=== PATIENT | female | born 2005 | race Two or more races ===

== ENCOUNTER 2024-02-12 23:38 | Inpatient (IN) | payer MEDICAID, SELFPAY ==
[2024-02-12 23:40] VITALS: BMI 35.9
[2024-02-12 23:45] VITALS: TEMP 36.9
[2024-02-12 23:54] VITALS: RESP 19; TEMP 36.9
[2024-02-13] VITALS (226 sets, daily range): BP systolic 0–155; BP diastolic 0–94; PULSE 77–157; RESP 17–18; TEMP 36.6–36.8; O2SAT 75–100
--- NOTE | 2024-02-13 01:08 | XR_ITS ---
Examination: Complete OB ultrasound greater than 14 weeks Date and time of exam: February 13, 2024 0130 hrs. Indications: Labor evaluation, pelvic pressure beginning 3 days ago Findings: Viable intrauterine single fetus with single amniotic sac presentation cephalic spine posterior Cardiac motion 160 BPM Placenta anterior grade 2 Umbilical cord insertion 3 vessel seen Amniotic fluid index 5.1 cm Cervix 3.8 cm Ovaries obscured by bowel gas. Composite estimated gestational age based on BPD, head circumference, abdominal circumference, femur length is 40 weeks 2 days Estimated weight 4193.5 g. Survey of intracranial anatomy, spinal anatomy, abdominal anatomy, four-chamber heart performed with no abnormalities identified. Impression: Viable intrauterine gestation cephalic presentation.
--- NOTE | 2024-02-13 02:19 | PD.LDHP ---
Documentation for date of: 02/13/24 OB Labor/Induct. HPI History of Present Illness Date of last menstrual period: 05/06/23 Gestational age based on last menstrual period: 40 History of present illness: 18 y/o @ 40w3d, per LMP 2nd trimester US, here for reports of abdominal pain. On arrival baby had a non recurrent variable deceleration. This is my first encounter with reji knox . Has not been scheduled for IOL yet. Patient reports no bleeding leaking History of Present Dating criteria: LMP confirmed by 2nd trimester US Adequate Care: Yes Labs Labs: Negative: Hepatitis B, HIV, Chlamydia, Gonorrhea and Group Beta Strep Narrative: GTT abnormal Meds Home Medications and Allergies Home Medications ?Medication ?Instructions ?Recorded ?Confirmed ?Type folic acid 800 mcg tablet 800 mcg PO DAILY 02/13/24 02/13/24 History vits no.124-ferrous fum 1 tab PO DAILY 02/13/24 02/13/24 History 27 mg iron-folic acid 800 mcg tablet ( Vitamin) Allergies Allergy/AdvReac Type Severity Reaction Status Date / Time No Known Allergies Allergy Verified 02/13/24 02:01 OB Exam Physical Exam Vital signs: Temp Pulse Resp BP 98.5 F 77 19 120/67 02/12/24 23:54 02/13/24 00:46 02/12/24 23:54 02/13/24 00:46 Constitutional Constitutional: no acute distress Routine HEENT Exam Head: Present normocephalic and atraumatic Eye: Present EOMI and PERRL ENT: Present mucous membranes moist Routine Neck Exam Neck: Present supple and trachea midline Routine Cardiovascular Exam Cardiovascular: Present RRR Routine Abdominal Exam Abdominal: Present soft and normoactive bowel sounds Detailed Labor and Delivery Exam Dilation (cm): 1/thick Comments: occasional variable decel Routine Extremities Exam Extremities: Present full ROM Routine Skin Exam Skin: Present intact, dry and warm Routine Neurological Exam Neurological: Present alert, oriented X3 and CN II-XII intact Routine Psychiatric Exam Psychiatric: Present normal affect and normal thought process OB Results Impressions Impression: 18 y/o [id number], Per 2nd trimester US , ADMITTED FOR iol FOR CATEGORY 2 FHT Normal GTT anatomy wnl GBS negative OB Assessment & Plan Additional Plan Additional Plan Comment: US for EFW and Presentration cervidil to be placed
[2024-02-13 02:49] LABS: Amphetamine/Metham Scrn,Ur OB Negative (Negative); Benzoylecgonine Screen, Ur OB Negative (Negative); Opiate Screen,Urine OB Negative (Negative); THC Screen,Urine OB Negative (Negative)
[2024-02-13 02:55] LABS: Basophils % (Auto) 0 % (0-2.5); Eosinophils # (Auto) 0.1 Thou/mm3 (0.0-0.5); Eosinophils % (Auto) 1 % (0-10); Hematocrit 33.5 % (36.0-46.0); Hemoglobin 10.9 g/dL (12.0-16.0); Immature Granulocytes % (Auto) 0 % (0-0); Immature Granulocytes Auto 0.04 Thou/mm3 (0.00-0.00); Lymphocytes # (Auto) 1.9 Thou/mm3 (1.0-5.0); Lymphocytes % (Auto) 19 % (10-50); Mean Corpuscular HGB Conc 32.5 g/dl (31.0-37.0); Mean Corpuscular Hemoglobin 23.5 pg (25.0-35.0); Mean Corpuscular Volume 72 fL (80-100); Monocytes # (Auto) 0.5 Thou/mm3 (0.0-0.8); Monocytes % (Auto) 5 % (0-12); Neutrophils # (Auto) 7.6 Thou/mm3 (1.8-7.7); Neutrophils % (Auto) 75 % (37-80); Nucleated Red Blood Cell % 0 /100 WBC (0); Platelet Count 195 Thou/mm3 (140-440); RDW Standard Deviation 54.4 fL (36.4-46.3); Red Blood Count 4.63 Miln/mm3 (4.00-5.20); White Blood Count 10.2 Thou/mm3 (4.5-11.0)
--- NOTE | 2024-02-13 03:07 | PRELIM_ITS ---
Obstetric ultrasound. February 13, 2024 at 0120 hours Clinical history: Presentation, EFW. Findings:S uboptimal visualization due to position. There is a gravid uterus with a live fetus in cephalic presentation of mean gestational age 40 weeks and 2 days. cardiac activity is present at a hea rt rate of 160 beats per minute. The placenta is anterior in location, maturity grade II. There is no evidence of placenta previa or retroplacental hemorrhage. Amniotic fluid index is 5.1 cm with Maximu m Vertical Pocket of 1.8 cm. Estimated weight is 4193 grams+/- 621 grams. The cervical length measures 3.8 cm. The ovaries are not visualized, obscured by bowel gas.Impression:Gravid uterus wit h a single live fetus in cephalic presentation of mean gestational age 40 weeks 2 days.Oligohydramnio s with amniotic fluid index of 5.1 cm and Maximum Vertical Pocket of 1.8 cmEstimated weight is 4193 grams+/- 621 grams. Discussion Details: Results verbally communicated to Evie Gomez RN at 06:04 AM ET 02/13/2024. A call back number was provided to facilitate a direct physician to physician communication. Report Electronically Signed By: Luis Edwards 02/13/2024 3:06:06 AM [EST]
[2024-02-13 03:24] LABS: Syphilis Nonreactive (Nonreactive)
[2024-02-13] MEDS: DINOPROSTONE 10 MG VAG.SUPP VAGINAL (03:25)
[2024-02-13] MEDS: fentaNYL CIT INJ 50 mCg/ML AMP 2ML 100 MCG IV ×2 (13:52→21:48)
[2024-02-13] MEDS: MISOPROSTOL 50 mCg TABLET PO (17:42)
[2024-02-13] MEDS: RINGERS LACTATED 1000 ML 1,000 ML 999 ML IV (20:40)
[2024-02-13] MEDS: TERBUTALINE SULF INJ 1 MG/ML VIAL 0.25 MG SC (20:46)
[2024-02-13] MEDS: MINERAL OIL 30 ML UDC TOP (21:40)
[2024-02-13] MEDS: OXYTOCIN in NS 20 units 20 UNIT/1,000 ML BAG 125 UNIT IV (21:44)
[2024-02-13] MEDS: LIDOCAINE HCL 1% 20 ML VIAL INFL (21:45)
[2024-02-13] MEDS: METHYLERGONOVINE INJ 0.2 MG/ML VIAL IM (21:48)
[2024-02-13] MEDS: TRANEXAMIC ACID 1,000 MG IVPB 1,000 MG/100 ML BAG 200 MG IV (21:48)
--- NOTE | 2024-02-13 22:04 | OBDSUM_ITS ---
Vacuum Assisted Delivery General Patient Counseled by physician:: Yes Informed consent to patient:: Yes Estimated weight:: 4100 g Cervical dilation:: fully dilated station:: +2 position:: [place] Molding:: No Caput:: No Vacuum Application Vacuum type:: Mityvac Vacuum application:: flexing median Cup Placement Flexion point identified:: Yes Cup approp. for head position:: Yes Maternal tissue excluded:: Yes Vacuum Procedure Number of pulls (contractions):: 2 Number of pop-offs:: 2 Recommended range maintained:: Yes Vacuum reduced between pulls:: Yes Immediate [place] Evaluation Immediate assessment:: no apparent injury Data (Craig) Data : 1 Para: 0 Term: 0 : 0 : 0 Delivery Data (Craig) Labor Data Induction: Yes ROM Date: 02/13/24 ROM Time: 19:00 Rupture Type: SROM Amniotic Fluid: Clear Delivery Data Labor Onset Stage 1 Date: 02/13/24 Labor Onset Stage 1 Time: 19:00 Labor Onset Stage 2 Date: 02/13/24 Labor Onset Stage 2 Time: 21:10 Delivery Date: 02/13/24 Delivery Time: 21:43 Placenta Delivery Date: 02/13/24 Placenta Delivery Time: 21:45 Delivered by: Teddy Natarajan Delivery nurse: aSrah Beth Jin Other staff at delivery: Nursery Nurse Other staff at delivery: Shruthi Avendaño Delivery Method Delivery: Vaginal Delivery Type: Spontaneous Presentation: Vertex Position: OA Anesthesia Type Primary Anesthesia: Local Delivery Room Medications Other Intrapartum Medications: Yes Placenta Placenta Delivery: Manual Placenta Cultures Obtained: Yes Placenta Sent for Examination: Yes Episiotomy Episiotomy: Right Mediolateral Umbilical Cord Umbilical Vessels: 3 Nuchal Cord: None Body Cord: None Data (Craig) Data Infant Gender: Male Weight Grams: 3910 1 Minute Total: 7 5 Minute Total: 9
[2024-02-13] MEDS: BENZO/LANO/ALOE (Dermoplast) 60 GM CAN 1 SPRAY TOP (22:33)
[2024-02-13] MEDS: ceFAZolin/D5W 2 GM IV 2 GM/100 ML BAG IV (22:33)
[2024-02-13] MEDS: IBUPROFEN TAB 400 MG TABLET 800 MG PO (22:34)
[2024-02-13] MEDS: metroNIDAZOLE/NS 500 MG IVPB 500 MG/100 ML BAG 200 MG IV (23:49)
[2024-02-14 04:20] VITALS: BP 109/65; PULSE 95; RESP 16; TEMP 36.4; O2SAT 98
[2024-02-14 06:52] LABS: Basophils % (Auto) 0 % (0-2.5); Eosinophils % (Auto) 0 % (0-10); Hematocrit 25.6 % (36.0-46.0); Immature Granulocytes % (Auto) 1 % (0-0); Immature Granulocytes Auto 0.08 Thou/mm3 (0.00-0.00); Lymphocytes # (Auto) 1.3 Thou/mm3 (1.0-5.0); Lymphocytes % (Auto) 8 % (10-50); Mean Corpuscular HGB Conc 32.4 g/dl (31.0-37.0); Mean Corpuscular Hemoglobin 24.1 pg (25.0-35.0); Mean Corpuscular Volume 74 fL (80-100); Monocytes # (Auto) 0.9 Thou/mm3 (0.0-0.8); Monocytes % (Auto) 6 % (0-12); Neutrophils # (Auto) 12.7 Thou/mm3 (1.8-7.7); Neutrophils % (Auto) 85 % (37-80); Nucleated Red Blood Cell % 0 /100 WBC (0); Platelet Count 155 Thou/mm3 (140-440); RDW Standard Deviation 56.3 fL (36.4-46.3); Red Blood Count 3.45 Miln/mm3 (4.00-5.20)
[2024-02-14 07:02] LABS: Hemoglobin 8.3 g/dL (12.0-16.0)
[2024-02-14 08:00] VITALS: BP 122/73; PULSE 98; RESP 18; TEMP 36.9; O2SAT 98
--- NOTE | 2024-02-14 09:07 | ESPR_ITS ---
Subjective Subjective Interval history: Delivery type: OVD Patient doing well this morning. No acute complaints. Ambulating, tolerating p.o. and voiding without difficulty. HTN/Pre-Eclampsia screen: No chest pain, shortness of breath, headache, visual changes, epigastric or right upper quadrant pain. Breast-feeding, lochia diminishing. Bowel: Flatus+/ BM+ Exam Vital Signs Temp Pulse Resp BP Pulse Ox O2 Del Method 98.5 F 98 18 122/73 98 Room Air 02/14/24 08:00 02/14/24 08:00 02/14/24 08:00 02/14/24 08:00 02/14/24 08:00 02/14/24 08:00 Constitutional Constitutional: no acute distress Routine HEENT Exam Head: Present normocephalic and atraumatic Eye: Present EOMI and PERRL ENT: Present mucous membranes moist Routine Neck Exam Neck: Present supple and trachea midline Routine Respiratory Exam Respiratory: Present chest non-tender, lungs clear, normal breath sounds and no resp distress Routine Cardiovascular Exam Cardiovascular: Present RRR Routine Abdominal Exam Abdominal: Present soft and normoactive bowel sounds Routine Extremities Exam Extremities: Present full ROM Routine Skin Exam Skin: Present intact, dry and warm Routine Neurological Exam Neurological: Present alert, oriented X3 and CN II-XII intact Routine Psychiatric Exam Psychiatric: Present normal affect and normal thought process Objective Labs 02/14/24 05:24 Labs: Laboratory Results - last 24 hr 02/14/24 05:24 WBC 15.0 H D RBC 3.45 L Hgb 8.3 L D Hct 25.6 L MCV 74 L MCH 24.1 L MCHC 32.4 RDW Std Deviation 56.3 H Plt Count 155 D Neut % (Auto) 85 H Lymph % (Auto) [address] % (Auto) 6 Eos % (Auto) 0 Baso % (Auto) 0 Neut # (Auto) 12.7 H Lymph # (Auto) 1.3 [place] # (Auto) 0.9 H Eos # (Auto) 0.0 Baso # (Auto) 0.0 Immature Gran # (Auto) 0.08 H Absolute Nucleated RBC 0.00 Immature Gran % 1 H Nucleated RBC % 0 Assessment & Plan Problem List (1) Status post vacuum-assisted vaginal delivery: Status: Acute Assessment and plan: 1. Continue routine /post-op care 2. Labs reviewed, cbc appropriate 3. Remove dressing/[place] 4. Encourage to ambulate, shower 5. Encourage PO intake, breast feeding Time Spent With Patient Time: Total time spent is greater than 50% in coordination of care (as documented) at patient's floor/unit and/or counseling patient:
[2024-02-14] MEDS: DOCUSATE SOD 100 MG CAPSULE PO (09:13)
[2024-02-14 11:52] VITALS: BP 115/72; PULSE 87; RESP 16; TEMP 37.1; O2SAT 98
[2024-02-14] MEDS: IBUPROFEN TAB 400 MG TABLET 800 MG PO (14:12)
[2024-02-14 15:27] VITALS: BP 126/82; PULSE 89; RESP 18; TEMP 37.7
--- NOTE | 2024-02-14 16:29 | PC.CC ---
SS referral for pt Jahaira Craig. 18 yr old female late to care at 20 weeks. From report from MADINA Robledo, there are no further concerns. CUSTOMER COMPLAINT SERVICE SUPERVISOR CC met with pt at bedside. At time of encounter SOFIA Alvarenga [phone] and paternal grandmother are at bedside. Pt expressed verbal consent for CUSTOMER COMPLAINT SERVICE SUPERVISOR CC to proceed with encounter. CUSTOMER COMPLAINT SERVICE SUPERVISOR CC explained reason for encounter and limitations of confidentiality. At this time pt is agreeable to meet with CUSTOMER COMPLAINT SERVICE SUPERVISOR CC. Pt confirmed being late to care at 20 weeks, stating that she did not know she was expecting. Pt reports once was confirmed she engaged in care. Pt reports being [facility] at [facility]. Pt reports this is couples first child. Pt reports having all needs for infant males D/c home. Pt reports having family support. FOB will transport at time of D/c. Family will [place] [address] Pt reports she is connected with [employer], WIC and SNAP. Pt reports she and FOB are unemployed at this time. Pt denies past or present involvement with [facility]. Pt denies hx of DV. Pt denies hx of substance use. Pt denies hx of mental health issues. CUSTOMER COMPLAINT SERVICE SUPERVISOR CC able to provide education on depression. Pt agreeable with information provided, and declined any further resources.
[2024-02-14 19:40] VITALS: BP 115/71; PULSE 95; RESP 17; TEMP 36.8; O2SAT 99
[2024-02-15 04:30] VITALS: BP 120/75; PULSE 89; RESP 20; TEMP 36.7; O2SAT 99
--- NOTE | 2024-02-15 07:16 | PD.LDPPPRG ---
Subjective Subjective Interval history: Patient at bedside. Afebrile, tolerating p.o., ambulating, voiding Exam Vital Signs Temp Pulse Resp BP Pulse Ox O2 Del Method 98.0 F 89 20 120/75 99 Room Air 02/15/24 04:30 02/15/24 04:30 02/15/24 04:30 02/15/24 04:30 02/15/24 04:30 02/15/24 04:30 Routine Abdominal Exam Comments: Soft, probably tender. Uterus firm, below the umbilicus Routine Exam Comments: Lochia similar to menses Routine Extremities Exam Comments: Homans' sign negative Objective Labs 02/14/24 05:24 Assessment & Plan Problem List (1) Status post vacuum-assisted vaginal delivery: Status: Acute Assessment Comment Assessment comment: 18-year-old status post at term. day 2 Plan Comment Plan Comment: Routine care. DC home if stable Time Spent With Patient Time: Total time spent is greater than 50% in coordination of care (as documented) at patient's floor/unit and/or counseling patient:
--- NOTE | 2024-02-15 07:17 | PD.LDDS ---
DS: Providers Provider Date of admission: 02/13/24 01:05 Primary care physician: Physician No Primary/Family Admitting Provider: Suzie Floyd MD Attending Provider on Admission: John Rodrigues MD Consults: 02/13/24 22:54 Referral Routine Comment: Attending Provider on DC: John Rodrigues MD Discharging Provider: John Rodrigues MD DS: Diagnosis Problem List Completed Was Problem List Reviewed/Reconciled?: Yes Summary/Hosp Course Brief History: 18 y/o came in labor and delivery via . course was unremarkable and on day 2 she was discharged home Peripartum Data Delivery Method: Normal Vaginal Delivery Time Spent with Patient Time attestation: Total time spent providing and/or coordinating discharge services: Exam Vital Signs Temp Pulse Resp BP Pulse Ox O2 Del Method 98.0 F 89 20 120/75 99 Room Air 02/15/24 04:30 02/15/24 04:30 02/15/24 04:30 02/15/24 04:30 02/15/24 04:30 02/15/24 04:30 Discharge Plan Plan Patient Disposition: HOME (Self Care) Patient condition on transfer: Stable Prescriptions/Referrals Prescriptions/Med Rec: New ibuprofen 800 mg tablet 800 mg PO Q6H 10 Days Qty: 40 0RF docusate sodium [Stool Softener] 100 mg capsule 100 mg PO QDAY 30 Days Qty: 30 0RF Continued ferrous sulfate 324 mg (65 mg iron) tablet,delayed release (DR/EC) 324 mg PO TID Qty: 90 0RF folic acid 800 mcg tablet 800 mcg PO DAILY Patient Comments: take 1 tablet by mouth once daily Vitamin 27 mg iron- 800 mcg Tablet 1 tab PO DAILY Referrals: Teddy Natarajan MD [Physician] - No Primary/Family,Physician [Primary Care Provider] - Patient/Caregiver Discharge Instructions Meds to Beds: Yes Discharge Activity: activity as tolerated Education Materials: After a Vaginal Print Language: Frisian Stand Alone Forms: Breanna Award Info., Patient Portal Info Letter Discharge Order Discharge Orders: Discharge (Routine); Ordered 02/15/24 Ordered By: John Rodrigues Planned Discharge Date 02/15/24
[2024-02-15 08:12] VITALS: BP 122/80; PULSE 89; RESP 19; TEMP 36.7; O2SAT 99
[2024-02-15] MEDS: DOCUSATE SOD 100 MG CAPSULE PO (09:02)
== END 2024-02-15 13:00 | disposition home or self-care (01) | DRG 560 ==
LOC: S4SX 02-13 22:08 → S4NX 02-14 00:10
PROVIDERS: Obstetrics & Gynecology; Admitting Provider Student in an Organized Health Care Education/Training Program; Visit Provider Obstetrics & Gynecology
DX: O48.0 Post-term pregnancy (principal); Z37.0 Single live birth; Z3A.40 40 weeks gestation of pregnancy; O76 Abnormality in fetal heart rate and rhythm complicating labor and delivery
CPT/HCPCS: 36415; 59025; 59409; 59899; 76805; 80307; 85025; 86780; 86850; 86900; 86901; 94762; J0689; J2210; J2590; J3010; J3105; J3490; J7120; A9270; J0690; J1836